=== PATIENT | male | born 1985 | race Caucasian/White ===

== ENCOUNTER 2019-04-20 11:13 | Inpatient (IN) | payer BC ==
[~2019-04-20] VITALS: Ht 177.8 cm; Wt 109.1 kg
--- NOTE | 2019-04-20 11:35 | NUR ---
REC'D TO ROOM 2234 A DIRECT ADMIT. AWAKE AND ALERT RESP EVEN AND UNLABORED WITH NO DISTRESS NOTEDD. CAN EXPRESS NEEDS AND WANTS. C/O PAIN RATING 8/10 ON PAIN SCALE. AMBULATE WITH SLOW AND STEADY GAIT. IV STARTED TO LEFT HAND WITH 22 G X 1 ATTEMPT. TOLERATED WELL. AND C/L IN REACH AT BEDSIDE.
[2019-04-20] MEDS ORDERED: PRINIVIL20 MG PO (11:38)
[2019-04-20] MEDS ORDERED: STERAPRED DS 1210 MG PO (11:40)
[2019-04-20] MEDS ORDERED: HYDROCODON-ACE1 EA10 PO (11:41)
[2019-04-20 13:27] VITALS: BP 161/79
--- NOTE | 2019-04-20 13:49 | NUR ---
CALL WAS PLACED TO DR. MARQUEZ FOR CLARIFICATION ON MOPRHINE ORDER, BUT NO ANSWER FOR MD AT THIS TIME. C/L IN REACH AT BEDSIDE.
--- NOTE | 2019-04-20 14:00 | NUR ---
CLINICAL SUPPORT ASSOCIATE MOPRHINE STARTED WITH STANDARD ORDERS UNTIL WE ARE ABLE TO GET A RESPONSE FROM MD. Hebert/Tiny IN REACH AT BEDSIDE.
[2019-04-20 16:28] VITALS: BP 133/72
--- NOTE | 2019-04-20 16:30 | NUR ---
REC'D CALL BACK FROM DR. MARQUEZ ABOUT PT PAIN NOT CONTROLLED WITH STANDARD. DR. MARQUEZ CONTINUE WITH ORDERS THAT HE HAD SENT OVER WITH PATIENT FOR DIRECT ADMIT. THIS NURSE INFORMED DR. MARQUEZ ABOUT PHARMACY CONCERN BUT DR. MARQUEZ STATED TO CONTINUE WITH ORDERS THAT HE SENT. ORDERS CARRIED OUT.
--- NOTE | 2019-04-20 16:59 | NUR ---
DR. MARQUEZ WAS NOTIFIED THAT THE ORDERS THAT HE GAVE FOR THIRD GRADE TEACHER THE MACHINE WOULD NOT TAKE INFORMED MD THAT WE CHANED SETTING TO MOPRHINE 2 MG Q 10 MINS WITH NO LOCK OUT INSTEAD OF MOPRHINE 2 MG Q 6 MINS WITH NO LOCK OUT.
[2019-04-20 21:03] VITALS: BP 136/81
[2019-04-21 01:21] VITALS: BP 124/58
--- NOTE | 2019-04-21 03:31 | NUR ---
I have reviewed this patient and I concur with the Shift Assessment completed by the Licensed Practical Nurse today this shift.
[2019-04-21 05:06] VITALS: BP 132/61
--- NOTE | 2019-04-21 07:25 | NUR ---
PT BEING TRANSFERRED TO PRE OP VIA BED FOR UPCOMING PROCEDURE.
[2019-04-21] MEDS ORDERED: PERCOCET 10-321 EAC1 PO (09:53)
--- NOTE | 2019-04-21 10:32 | NUR ---
1014 - ALL NEURO CHECKS ON BILAT LE PERFORMED SUCCESSFULLY
[2019-04-21 11:00] VITALS: BP 162/89
--- NOTE | 2019-04-21 11:00 | NUR ---
PT RETURNED VIA BED BACK TO ROOM FROM RECOVERY. ALERT, ORIENTED X 4. RESP EVEN AND UNLABORED. DRESSING C/D/I TO LOWER MID BACK. FAMILY AT BEDSIDE.
[2019-04-21 12:05] VITALS: BP 156/80; Ht 177.8 cm; Wt 109.1 kg
--- NOTE | 2019-04-21 13:15 | NUR ---
PT ASSISTED TO AMBULATE TO BR. PT ABLE TO VOID. DENIES PAIN AT THIS TIME. ASSISTED BACK TO BED. PT JAZMYNE WELL.
--- NOTE | 2019-04-21 13:40 | NUR ---
PT DISCHARGE INFORMATION PROVIDED WITH PRESCRIPTION. DISCUSSED POST OP LAMINECTOMY PROCEDURES, STRESSING NO LIFTING STOOPING OR LIFTING. PT VOICES UNDERSTANDING. PROVIDED POST OP LIST OF THINGS TO AVOID AND DO WITH ANY PROBLEMS. PT AND FAMILY VOICE UNDERSTANDING, DENYING ANY QUESTIONS AT THIS TIME. IV D/C'D FROM LEFT HAND, CATH INTACT. PT TAKEN OUT VIA W/C TO PRIVATE VEHICLE FOR D/C WITH ALL PERSONAL BELONGINGS.
[2019-04-21 13:41] VITALS: BP 145/71
--- NOTE | 2019-04-21 13:54 | MORECARE ---
CASE MANAGEMENT DISCHARGE SUMMARY PATIENT: ARISTIDES RAMOS UNIT: [id number] ADM DATE: 04/20/19 AGE: 33 : [birth year] SEX: M ROOM/BED: D.2234 AUTHOR: KALEY,DOC PHYSICIAN: REFERRING PHYSICIAN: WILLIS MARQUEZ MD DATE OF SERVICE: 04/21/19 Discharge Plan Patient Name: ARISTIDES RAMOS Facility: [facility]:[place] : 1985 Planned Disposition: Home Anticipated Discharge Date: 04/21/19 Discharge Date: Expected LOS: 1 Initial Reviewer: [email or web address] Initial Review Date: 04/21/2019 Generated: 04/21/19 2:54 pm DCP- Discharge Planning Updated by [email or web address]: Nena Francis on 04/21/19 12:[address] Patient Name: ARISTIDES RAMOS Admission Status: Elective Accout number: [id number] Admission Date: 04-20-2019 : 1985 Admission Diagnosis: Attending: WILLIS MARQUEZ Current LOS: 1 Anticipated DC Date: 04-21-2019 Planned Disposition: Home Primary Insurance: [employer] OUT OF STATE Discharge Planning Comments: CM met with patient to complete initial dc planning assessment. CM educated patient on the CM role and verbal consent given by patient to complete assessment. Patient lives at home with his spouse. At discharge patient plans to return and feels this is a safe discharge. CM discussed availability of home health, rehab services, and medical equipment. Patient denied known discharge needs at this time. CM will continue to follow and will assist as needed with dc plans/needs. Molded Rubber Goods Cutter: Nena Francis DCPIA - Discharge Planning Initial Assessment Updated by [email or web address]: Nena Francis on 04/21/19 1:51 pm * Is the patient Alert and Oriented? Yes * How many steps to enter\exit or inside your home? 2/2 * PCP Dr. Dennis Gordon - [place] * Pharmacy [facility] in [place] * Preadmission Environment Home with Family * ADLs Independent * Equipment None * List name and contact numbers for known caregivers / representatives who currently or will assist patient after discharge: Erika - spouse - [phone] * Verbal permission to speak to the caregivers and representatives has been obtained from the patient. Yes * Community resources currently utilized None * Can the patient safely return to the preadmission environment? Yes * Has this patient been hospitalized within the prior 30 days at any hospital? No Patient Name: ARISTIDES RAMOS Page [phone] at 1354 All edits/amendments must be made on the electronic document DICTATION DATE: 04/21/19 1353 DRAINMAN: CARLA 04/21/19 1353 RPT#: [id number] DC DATE: STATUS: ADM IN [facility] [address] [place] [address] END OF REPORT
--- NOTE | 2019-04-22 08:28 | OP ---
PATIENT NAME: ARISTIDES RAMOS MEDICAL RECORD: [id number] :[birth year] LOCATION:D.MS [id number] ADMISSION DATE:04/20/19 SURGEON: WILLIS SMITH MD DATE OF OPERATION: 04/21/2019 PREOPERATIVE DIAGNOSIS: Left L4-L5 disc herniation with left L5 radiculopathy. POSTOPERATIVE DIAGNOSIS: Left L4-L5 disc herniation with left L5 radiculopathy. PROCEDURES: Lumbar laminotomy, medial facetectomy and foraminotomy L4-L5 on the left with discectomy. SURGEON: Willis Smith MD DESCRIPTION OF TECHNIQUE: After induction of general endotracheal anesthesia, the patient was rolled prone on a Bernardo frame. Lumbar spine was prepped and draped in usual sterile fashion. Fluoroscopic x-ray and spinal needle localized the L4-L5 interspace on the left side. A stab incision was created with #11 blade. A series of dilators were used to advance a METRx retractor at the L4-L5 interspace on the left side. Level was confirmed with fluoroscopic x-ray. A microscope and Midas Srinath drill were used to perform laminotomy, medial facetectomy and foraminotomy at L4-L5 on the left side. Hypertrophied ligamentum flavum was removed with Cloward rongeurs and further foraminotomy at L4-L5 interspace was undertaken with #3 Cloward rongeur. Following this, there was obvious disc herniation within the axilla of the left L5 nerve root. This was removed in a piecemeal fashion with pituitary rongeurs and curettes. Additional material was removed from the disc space. Following this, the L4 and L5 nerve roots were decompressed well. Meticulous hemostasis was maintained throughout the wound. The wound was irrigated with copious amounts of Ancef irrigant solution. The fascia was closed with 2-0 Vicryl suture. Subdermal layer was closed with 3-0 Vicryl suture. The skin was closed with mario. A sterile dressing was applied to the wound. The patient was awakened in good condition and taken to recovery. All counts were reported as correct. Estimated blood loss was minimal. TRANSINT:[id number] Voice Confirmation ID: [id number] DOCUMENT ID: [id number] WILLIS SMITH MD at 0828 CC: [id number] DICTATION DATE: 04/21/1952 SENIOR SCIENTIST: 04/21/19 1430 DIS IN 04/21/19 [facility] [address] [place] [address]
--- NOTE | 2019-04-25 14:03 | MORECARE ---
CASE MANAGEMENT DISCHARGE SUMMARY PATIENT: ARISTIDES RAMOS UNIT: [id number] ADM DATE: 04/20/19 AGE: 33 : 85 SEX: M ROOM/BED: D.2234 AUTHOR: KALEY,DOC PHYSICIAN: REFERRING PHYSICIAN: WILILS MARQUEZ MD DATE OF SERVICE: 04/25/19 Discharge Plan Patient Name: ARISTIDES RAMOS Facility: [facility]:[place] : 1985 Planned Disposition: Home Anticipated Discharge Date: 04/21/19 Discharge Date: 04/21/2019 Expected LOS: 1 Initial Reviewer: [email or web address] Initial Review Date: 04/21/2019 Generated: 04/25/19 3:02 pm DCP- Discharge Planning Updated by [email or web address]: Nena Francis on 04/21/19 12:[address] Patient Name: ARISTIDES RAMOS Admission Status: Elective Accout number: [id number] Admission Date: 04-20-2019 : 1985 Admission Diagnosis: Attending: WILLIS MARQUEZ Current LOS: 1 Anticipated DC Date: 04-21-2019 Planned Disposition: Home Primary Insurance: [employer] OUT OF STATE Discharge Planning Comments: CM met with patient to complete initial dc planning assessment. CM educated patient on the CM role and verbal consent given by patient to complete assessment. Patient lives at home with his spouse. At discharge patient plans to return and feels this is a safe discharge. CM discussed availability of home health, rehab services, and medical equipment. Patient denied known discharge needs at this time. CM will continue to follow and will assist as needed with dc plans/needs. Damper Fitter: Nena Francis DCPIA - Discharge Planning Initial Assessment Updated by [email or web address]: Nena Francis on 04/21/19 1:51 pm * Is the patient Alert and Oriented? Yes * How many steps to enter\exit or inside your home? 2/2 * PCP Dr. Dennis Gordon - [place] * Pharmacy [facility] in [place] * Preadmission Environment Home with Family * ADLs Independent * Equipment None * List name and contact numbers for known caregivers / representatives who currently or will assist patient after discharge: Erika - spouse - [phone] * Verbal permission to speak to the caregivers and representatives has been obtained from the patient. Yes * Community resources currently utilized None * Can the patient safely return to the preadmission environment? Yes * Has this patient been hospitalized within the prior 30 days at any hospital? No Last DP export: 04/21/19 12:54 Patient Name: ARISTIDES RAMOS Page 49565 at 1403 All edits/amendments must be made on the electronic document DICTATION DATE: 04/25/191401 ONCOLOGY RADIATION PHYSICIAN: CARLA 04/25/191401 RPT#: [id number] DC DATE:04/21/19 STATUS: DIS IN [facility] [address] [place] [address] END OF REPORT
== END 2019-04-21 14:04 | disposition home or self-care (01) | DRG 520 ==
LOC: D.SDCHOLD 11:13 → D.MS 11:19
PROVIDERS: ADMIT Neurological Surgery; ATTEND Neurological Surgery
PROC: 01NB4ZZ Release Lumbar Nerve, Percutaneous Endoscopic Approach (ICD-10-PCS; 2019-04-21)
PROC: 0SB24ZZ Excision of Lumbar Vertebral Disc, Percutaneous Endoscopic Approach (ICD-10-PCS; principal; 2019-04-21 08:00)
DX: M51.16 Intervertebral disc disorders with radiculopathy, lumbar region (principal); E66.9 Obesity, unspecified; Z68.34 Body mass index [BMI] 34.0-34.9, adult; I10 Essential (primary) hypertension

== ENCOUNTER 2019-11-18 11:14 | Day surgery (SDC) | payer BC ==
[~2019-11-18] VITALS: Ht 177.8 cm; Wt 108.9 kg
--- NOTE | ~2019-11-18 | OP ---
PATIENT NAME: ARISTIDES RAMOS MEDICAL RECORD: [id number] :[birth year] LOCATION:D.[facility] ADMISSION DATE: SURGEON: WILLIS SMITH MD DATE OF OPERATION: 11/18/2019 PREOPERATIVE DIAGNOSIS: Recurrent disc herniation, left L4-5 with left L5 radiculopathy. POSTOPERATIVE DIAGNOSIS: Recurrent disc herniation, left L4-5 with left L5 radiculopathy. PROCEDURE: Redo lumbar laminectomy, medial facetectomy, and foraminotomy at L4-5, left. SURGEON: Willis Smith MD EMBROIDERER HAND: Maurice Navarro APN. DESCRIPTION OF TECHNIQUE: After induction of general endotracheal anesthesia, the patient was rolled prone on a Bernardo frame. Lumbar spine was prepped and draped in usual sterile fashion. Fluoroscopic x-ray and spinal needle localized the L4-5 interspace on the left side. After infiltration of 1:100,000 epinephrine with 1% lidocaine, a stab incision was created with a #11 blade. A series of dilators were used to advance a METRx retractor at the L4-5 interspace on the left side that was confirmed with fluoroscopic x-ray. A Midas Srinath drill and microscope were used to extend the previous laminotomy at L4-5 on the left. The portions of the bone of the lamina and medial facet were removed just lateral and superior to the scar tissue. Scar tissue was dissected free from the dura. Following this, the left L5 nerve was identified and appeared to be compressed ventrally by large disc herniation. Disc material was removed with a combination of pituitary rongeurs and curettes. Additional disc material was removed from the disc space. Additional material swept from the spinal canal. Following this, the L5 nerve roots were completely decompressed. Meticulous hemostasis was maintained throughout the wound. : Maurice Navarro APN, was public aid eligibility assistant throughout the case. He helped with retraction, hemostasis, and mechanical components of the case. The patient was awakened. Retractor was removed. The fascia was closed with 3-0 Vicryl suture. Subdermal layer was closed with 3-0 Vicryl suture. Skin was closed with mario. Sterile dressing was applied to the wound. The patient was awakened in good condition and taken to recovery. All counts were reported as correct. Estimated blood loss was minimal. NTS:[id number] Voice Confirmation ID: [id number] DOCUMENT ID: [id number] WILLIS SMITH MD CC: [id number] DICTATION DATE: 11/22/19806 ADVERTISING DISPLAY ROTATOR: 11/22/191944 [facility] [place] 11/18/19 [id number] [place] [address]
[~2019-11-18 11:14] MED LIST: HYDROCODON-ACE1 EA10 PO; PERCOCET 10-321 EAC1 PO; PRINIVIL20 MG PO; STERAPRED DS 1210 MG PO; ULTRAM50 MG PO; VITAMIN B COMPLEX PO; ZYRTEC10 MG PO
[2019-11-18 11:45] LABS: HEMATOCRIT 44.2 % (42.0-54.0); HEMOGLOBIN 15.3 g/dL (13.5-17.5); MCH 30.9 pg (26.0-34.0); MCHC 34.6 g/dL (31.0-37.0); MCV 89.3 fL (80.0-100.0); MEAN PLATELET VOLUME 9.2 fL (7.4-10.4); RBC 4.95 10x6/uL (4.20-6.10); RDW 13.5 % (11.5-14.5); WBC 7.1 10x3/uL (4.8-10.8)
[2019-11-18 12:25] VITALS: BP 134/77; Ht 177.8 cm; Wt 108.9 kg
--- NOTE | 2019-11-18 13:50 | NUR ---
PATIENT LYING IN BED, AWAKE, ALERT. SPOUSE AT BEDSIDE, PATIENT SMILING AND WATCHING TV, STATES "I FEEL GOOD." PATIENT DENIES PAIN. PATIENT AWARE OF DR MARQUEZ'S SCHEDULE BEING BEHIND. DENIES NEEDS AT THIS TIME
[2019-11-18] MEDS ORDERED: PERCOCET 10-321 EAC1 PO (19:16)
[2019-11-18] MEDS ORDERED: MEDROL DOSE PACK4 MG PO (19:17)
--- NOTE | 2019-11-18 22:11 | NUR ---
2144 IV REMOVED AND PT VOIDED. DRESSING REINFORCED TO LOWER BACK. SMALL AMT OF DRAINAGE. 2129 MEDICATED PO PAIN MILD. EQUAL STRENGTH IN JOSR LEGS AND SENSATION, INSTRUCTIONS GIVEN. TOLERATED LIQ AND ICE CREAM.
== END 2019-11-18 22:05 | disposition home or self-care (01) ==
LOC: D.OPS 11:14 → D.PAN 15:30 → D.OPS 22:05
PROVIDERS: Anesthesiology; ATTEND Neurological Surgery
DX: M51.16 Intervertebral disc disorders with radiculopathy, lumbar region (principal)